=== PATIENT | female | born 1975 | race Caucasian/White ===

== ENCOUNTER → 2024-01-05 09:08 | Outpatient (REF) | payer OTHER, SELFPAY | LOC: HWWDC 09:08 | PROVIDERS: ATTENDING PHYSICIAN Family Medicine | DX: Z12.31 Encounter for screening mammogram for malignant neoplasm of breast (principal) | CPT/HCPCS: 77063; 77067 ==

== ENCOUNTER → 2024-01-08 07:38 | Outpatient (REF) | payer OTHER, SELFPAY | LOC: WDC 07:38 | PROVIDERS: ATTENDING PHYSICIAN Family Medicine | DX: R92.30 Dense breasts, unspecified (principal); R92.2 Inconclusive mammogram | CPT/HCPCS: 76641 ==